=== PATIENT | female | born 1950 | race Caucasian/White ===

== ENCOUNTER 2024-01-29 21:09 | Emergency (ER) | payer MEDICARE, BC ==
[~2024-01-29] VITALS: Ht 167.6 cm; Wt 65.0 kg
[2024-01-29 21:12] VITALS: BP 184/92; PULSE 102; RESP 18; TEMP 98.9; O2SAT 97
[2024-01-29] MEDS ORDERED: ACETAMINOPHEN 325MG TABLET PO STA (23:06)
== END 2024-01-30 00:24 | disposition home or self-care (01) ==
LOC: ER 21:09
DX: S09.90XA Unspecified injury of head, initial encounter (principal); I10 Essential (primary) hypertension; Z85.9 Personal history of malignant neoplasm, unspecified; W01.0XXA Fall on same level from slipping, tripping and stumbling without subsequent striking against object, initial encounter; Y93.89 Activity, other specified; Y92.89 Other specified places as the place of occurrence of the external cause; Y99.8 Other external cause status
CPT/HCPCS: 99284